=== PATIENT | female | born 1950 | race Caucasian/White ===

== ENCOUNTER 2019-11-30 08:45 | Outpatient (CLI) | payer MEDICARE, OTHER, SELFPAY ==
--- NOTE | ~2019-11-30 | DEXA_ITS ---
Bone Density Report Name: Natalie Mann Age: 69 Sex: Female Ethnicity: White Date of : 1950 Indication: postmenopausal; cancer; Referring Provider: Amanda Montano Study: Bone densitometry was performed. Exam Date: November 30, 2019 Accession number: [id number] Bone Density: Region BMD T-score Z-score Classification AP Spine (L1-L4) 1.501 4.1 6.1 Normal Femoral Neck (Left) 0.941 0.8 2.5 Normal Total Hip (Left) 1.333 3.2 4.6 Normal Total Hip Bilateral Avg 1.376 3.6 5.0 Normal Femoral Neck (Right) 1.162 2.8 4.5 Normal Total Hip (Right) 1.417 3.9 5.3 Normal World Health Organization criteria for BMD impression classify patients as: Normal (T-score at or above -1.0), Osteopenia (T-score between -1.0 and -2.5), or Osteoporosis (T-score at or below -2.5). 10-year Fracture Risk: FRAX not reported because: All T-scores for Spine Total, Hip Total, Femoral Neck at or above -1.0 Clinical Information Provided by Patient: Has the following medical conditions: Cancer Patient maximum height was 11 Menopause Age: 46 No regular weight bearing exercise Onset of menses at age 12 Number of children 3 Impression: The patient has normal bone mass. Discussion: LOW RISK OF FRACTURE; BONE DENSITY IS WELL ABOVE THE MINIMUM DESIRABLE LEVEL AND ABOVE AVERAGE FOR AGE AND SEX AT ALL SKELETAL SITES TESTED. This person's bone density is above expected limits for age and sex. This is rarely clinically significant, but should be pursued if there are significant musculoskeletal complaints. The patient should follow a healthful lifestyle (good nutrition with adequate calcium and vitamin D, and appropriate weight-bearing exercise). Follow-Up: Consider repeating this study in 5 years or sooner if there is some new clinical indication. Reported by: [facility] on 11/30/2019 9:44:00 AM. Reviewed, dictated and finalized at location AChe [place]
--- NOTE | ~2019-11-30 | MM_ITS ---
EXAMINATION: MM screening [place] BI w jose HISTORY: Screening mammogram TECHNIQUE: Craniocaudal and mediolateral oblique 3-D tomosynthesis images were obtained and synthetic 2-D images were generated. CAD analysis was submitted and interpreted. COMPARISON: 11/27/2018 BREAST PARENCHYMAL COMPOSITION: The breasts are almost entirely fatty. FINDINGS: There is no evidence of suspicious mass, calcification, or architectural distortion to sugg est malignancy in either breast. There has been no suspicious interval change. IMPRESSION: 1. No mammographic evidence of malignancy. 2. Recommend routine screening mammography in one year. BI-RADS Category 1: Negative Reviewed, dictated and finalized at location A.
== END 2019-11-30 08:46 | disposition home or self-care (01) ==
PROVIDERS: PCP Internal Medicine; Visit Provider Nurse Practitioner
DX: Z12.31 Encounter for screening mammogram for malignant neoplasm of breast (principal); Z78.0 Asymptomatic menopausal state
CPT/HCPCS: 77063; 77067; 77080

== ENCOUNTER 2020-05-01 08:15 | Outpatient (CLI) | payer MEDICARE, OTHER, SELFPAY ==
--- NOTE | ~2020-05-01 | XR_ITS ---
EXAMINATION: XR UGIAC w barium swallow EXAM DATE: 05/01/2020 08:56 INDICATION: R13.10 - Dysphagia, unspecified . Episodes of food getting stuck. TECHNIQUE: Standard single and double contrast barium upper GI examination was performed. The DAP for this procedure was 5.5 Gycm2. There is no prior study for comparison. FINDINGS: There is no esophageal stricture, diverticulum or mass identified. Small to moderate size sliding gastroesophageal hiatal hernia. The stomach has a normal appearance without evidence of mass lesion, ulceration or filling defect. T here is normal rugal fold pattern. The duodenum and duodenal sweep are normal in appearance. IMPRESSION: Small to moderate sliding gastroesophageal hiatal hernia. Reviewed, dictated and finalized at location A. RAL ADJUSTER
== END 2020-05-01 08:16 | disposition home or self-care (01) ==
PROVIDERS: PCP Internal Medicine; Visit Provider Internal Medicine
DX: R13.10 Dysphagia, unspecified (principal); K44.9 Diaphragmatic hernia without obstruction or gangrene
CPT/HCPCS: 74246

== ENCOUNTER 2020-05-15 10:49 | Outpatient (CLI) | payer MEDICARE, OTHER, SELFPAY ==
--- NOTE | ~2020-05-15 | CT_ITS ---
EXAMINATION: CT lung screening DATE: 05/15/2020 11:15 INDICATION: History of tobacco dependence. TECHNIQUE: Computed tomography (CT) of the chest was performed without intravenous contrast. The dose -length product was 370.85 mGy-cm. Automated exposure control and iterative reconstruction technique were employed. COMPARISON: CT dated 07/10/2018 FINDINGS: Heart size normal. No significant pleural or pericardial effusion. There are calcified gran ulomas of the spleen. No thoracic lymphadenopathy. No significant soft tissue abnormality. There is e mphysema. No endobronchial lesions. There is a 5 mm lingular nodule, image 62. There is a 2 mm left u pper lobe nodule, image 42. There is lingular atelectasis/scarring. There is pleural calcification of the right lower lobe, nonspecific. Mild thoracic spondylosis. IMPRESSION: 1. Lung-RADS category 2: Benign appearance or behavior. Continue annual screening with noncontrast lo w-dose chest CT in 12 months. Reviewed, dictated and finalized at location B. CILMAN IMPRESSION: 1. Lung-RADS category 2: Benign appearance or behavior. Continue annual screeni ng with noncontrast low-dose chest CT in 12 months.
== END 2020-05-15 10:50 | disposition home or self-care (01) ==
PROVIDERS: PCP Internal Medicine; Visit Provider Nurse Practitioner Family
DX: Z12.2 Encounter for screening for malignant neoplasm of respiratory organs (principal); Z87.891 Personal history of nicotine dependence
CPT/HCPCS: G0297

== ENCOUNTER 2021-08-13 11:06 | Outpatient (CLI) | payer MEDICARE, SELFPAY ==
--- NOTE | 2021-08-13 11:29 | ECG_ITS ---
Measurements Intervals [place] Rate: 81 P: 30 CT: 171 QRS: -26 QRSD: 98 T: 16 QT: 362 QTc: 421 Interpretive Statements SINUS RHYTHM DELAYED PRECORDIAL R/S TRANSITION INFERIOR INFARCT, AGE INDETERMINATE BASELINE ARTIFACT- I, II, III ,AVR, AVL, AVF ABNORMAL ECG Electronically Signed On 08-13-2021 12:17:10 [employer] by Aden Cerda D.O.
== END 2021-08-13 11:07 | disposition home or self-care (01) ==
LOC: ANHCARD 11:11
PROVIDERS: PCP Internal Medicine; Visit Provider Nurse Practitioner
DX: Z01.818 Encounter for other preprocedural examination (principal); R94.31 Abnormal electrocardiogram [ECG] [EKG]
CPT/HCPCS: 93005

== ENCOUNTER 2021-09-17 10:32 | Outpatient (CLI) | payer MEDICARE, OTHER, SELFPAY ==
--- NOTE | ~2021-09-17 | CT_ITS ---
EXAMINATION: CT lung screening DATE: 09/17/2021 10:50 INDICATION: Personal history of nicotine dependence. COPD. TECHNIQUE: Computed tomography (CT) of the chest was performed without intravenous contrast. Addition al 3D reconstructions utilizing coronal maximum intensity projection (MIP) were performed. Automated exposure control and iterative reconstruction technique were employed. The dose-length product was 41 3.56 mGy-cm. COMPARISON: 05/15/2020 FINDINGS: Mild emphysema. Unchanged linear band of discoid atelectasis/scarring at the lingula additional mild paramediastinal atelectasis/scarring at the medial right middle lobe.. Interval decrease in size of a now 3 have 4 mm, previously 5 mm nodule at the lingula. Unchanged 4 mm right lower lobe nodule. No p neumonia, pulmonary edema, pleural effusion or pneumothorax. Calcified nodule at the right posterior sulcus along side a small fat-containing Bochdalek hernia which along with calcified right hilar lymp h nodes and multiple splenic calcifications are all consistent with old granulomatous disease. Heart size is normal. There is lipomatous hypertrophy of the atrial septum. Atherosclerotic coronary artery calcific location. Mild diffuse hepatic steatosis. Small calcified nodules at the left thyroid lobe. Subtle 2.5 cm hypodense nodule at the right thyroid lobe previously described on thyroid ultrasound dated 03/24/2017. No pathologically enlarged thoracic lymphadenopathy. Moderate thoracic spondylosis. IMPRESSION: 1. Lung-RADS category 2: Benign appearance or behavior. Continue annual screening with noncontrast lo w-dose chest CT in 12 months. Reviewed, dictated and finalized at location B. IMPRESSION: 1. Lung-RADS category 2: Benign appearance or behavior. Continue annual screeni ng with noncontrast low-dose chest CT in 12 months.
== END 2021-09-17 10:33 | disposition home or self-care (01) ==
PROVIDERS: PCP Internal Medicine; Visit Provider Nurse Practitioner Family
DX: Z87.891 Personal history of nicotine dependence (principal)
CPT/HCPCS: 71271

== ENCOUNTER 2021-09-17 15:07 | Outpatient (CLI) | payer MEDICARE, OTHER, SELFPAY ==
--- NOTE | ~2021-09-17 | MM_ITS ---
EXAMINATION: MM screening [place] BI w jose HISTORY: Screening TECHNIQUE: Craniocaudal and mediolateral oblique 3-D tomosynthesis images were obtained and synthetic 2-D images were generated. CAD analysis was submitted and interpreted. COMPARISON: Comparison to multiple prior studies sequentially, with oldest reviewed study dated 11/27. BREAST PARENCHYMAL COMPOSITION: The breasts are almost entirely fatty. FINDINGS: There is no evidence of suspicious mass, calcification, or architectural distortion to sugg est malignancy in either breast. There has been no suspicious interval change. IMPRESSION: 1. No mammographic evidence of malignancy. 2. Recommend routine screening mammography in one year. BI-RADS Category 1: Negative Reviewed, dictated and finalized at location A.
== END 2021-09-17 15:08 | disposition home or self-care (01) ==
LOC: ANHIMG 15:10
PROVIDERS: PCP Internal Medicine; Visit Provider Nurse Practitioner
DX: Z12.31 Encounter for screening mammogram for malignant neoplasm of breast (principal)
CPT/HCPCS: 77063; 77067

== ENCOUNTER 2022-02-19 14:12 | Outpatient (CLI) | payer MEDICARE, OTHER, SELFPAY ==
--- NOTE | ~2022-02-19 | XR_ITS ---
EXAM: XR knee RT 3V, XR knee LT 3V DATE: 02/19/2022 14:41 HISTORY: W19.XXXA - Unspecified fall, initial encounter . COMPARISON: None available. FINDINGS: Decreased mineralization. No fracture or dislocation. No lytic or blastic lesion. Severe b ilateral medial joint space narrowing. Moderate tricompartmental osteophytosis. No erosion or periost eal change. Vascular calcifications. Small bilateral knee joint effusions. IMPRESSION: No acute osseous finding in the left or right knees. Tricompartmental osteoarthritis, sev ere in the medial compartments bilaterally. Reviewed, dictated and finalized at location K. IMPRESSION: No acute osseous finding in the left or right knees. Tricompartment al osteoarthritis, severe in the medial compartments bilaterally.
== END 2022-02-19 14:13 | disposition home or self-care (01) ==
PROVIDERS: PCP Internal Medicine; Visit Provider Internal Medicine
DX: M17.0 Bilateral primary osteoarthritis of knee (principal)
CPT/HCPCS: 73562

== ENCOUNTER 2022-06-27 10:58 | Emergency (ER) | payer MEDICARE, OTHER, SELFPAY ==
[2022-06-27 11:04] VITALS: BP 153/94; PULSE 91; RESP 16; TEMP 36.4; O2SAT 97
--- NOTE | 2022-06-27 11:13 | ED.BACK ---
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 There is no saddle paresthesias no fever chills and back tenderness left lower back area. MD elicited complaint: back pain Onset (ago): day(s) Timing: constant Severity: moderate Pain scale (0-10): 7 Quality: sharp and spasming Location: lumbar spine and left lower back Radiation: left upper leg Relieving factors: immobilization Related Data Home Medications Medication Instructions Recorded Confirmed pantoprazole 20 mg tablet,delayed 20 mg PO QAM 09/21/21 04/05/22 release Allergies Allergy/AdvReac Type Severity Reaction Status Date / Time No Known Allergies Allergy Verified 04/05/22 13:21 Review of Systems Review of Systems: All systems reviewed & are unremarkable except as noted in HPI and below PMFSH Past Medical History Medical History COVID-19 Screening for breast cancer Screening for colon cancer Screening for osteoporosis Urinary incontinence Surgical History Surgical History H/O section (~196) H/O eye surgery H/O sinus surgery (~2013) H/O: hysterectomy (~1996) History of uterine suspension procedure (~1979) Hx of tonsillectomy (~1966) Family History Family History Sibling Family history of Alzheimer's disease Patient's sister is in good health Patient's brother is Mother Patient's mother is Father Patient's father is Sister Familial Alzheimer's disease of late onset Other Family history of dementia Family history of tuberculosis Hypertension Social History Social History Smoking packs per day: 3 Smoking cigarettes per day: 60.0 Years smoked: 47 Smoking pack-years: 141.00 Smoking status: Former smoker Tobacco type: cigarettes Second hand tobacco smoke exposure: Yes Smoking end date: 06/16/13 Alcohol intake: never Substance use: never Substance use type: does not use Exam Const: General: healthy appearing Nutritional Appearance: well nourished Limitations: no limitations HENMT: Face/Nose/Sinus: Normal external nose present Mouth: Yes Normal oral and palatal mucosa present Teeth and gingiva: dentition normal Eyes: Conjunctivae: conjunctivae normal Pupils: Equal, round and reactive pupils present EOM: EOMs intact bilaterally Direct Ophthalmoscopy: no photophobia Neck: Neck: normal visual inspection Chest: Chest palpation & inspection: normal inspection of the chest Resp: Effort & Inspection: normal respiratory effort Auscultation: clear to auscultation bilaterally Cardio: Rate: regular rate Rhythm: regular rhythm GI: Auscultation: normal bowel sounds : General: Yes bladder normal to palpation Skin: General skin exam: normal color Wounds: no wounds Neuro: General: patient oriented x3 Cranial nerves: Yes Nystagmus not present Extrem: General: normal to inspection Psych: Mental Status: mental status grossly normal Affect: normal affect Course Course Emergency Course: pt recieved toradol IM 30 mg for pain Critical Care Time Critical Care Time Critical Care Time: No Discharge Plan Discharge Clinical Impression: Sciatica Patient Dispo
[2022-06-27] MEDS: KETOROLAC 30 MG/ML VIAL (*BKC) IM (11:39)
[2022-06-27 12:43] VITALS: BP 175/110; PULSE 86; RESP 16; TEMP 36.8; O2SAT 100
== END 2022-06-27 12:20 | disposition home or self-care (01) ==
LOC: CHSED 11:31
PROVIDERS: Emergency Provider Emergency Medicine; PCP Internal Medicine
DX: M54.30 Sciatica, unspecified side (principal); Z87.891 Personal history of nicotine dependence
CPT/HCPCS: 96372; 99283; J1885

== ENCOUNTER 2022-07-09 10:25 | Outpatient (CLI) | payer MEDICARE, OTHER, SELFPAY ==
--- NOTE | ~2022-07-09 | XR_ITS ---
Lumbosacral Spine: AP and lateral views Clinical History: Pain Findings: The normal lordotic curve is maintained. No fracture or subluxation seen. Intervertebral di sc spaces are preserved. There are extensive facet joint degenerative changes throughout the lumbar s pine. The sacroiliac joints are normally outlined. Impression: Extensive facet joint degenerative changes throughout the lumbar spine. Reviewed, dictated and finalized at location . OL CUSTODIAN Impression: Extensive facet joint degenerative changes throughout the lumbar spine.
== END 2022-07-09 10:26 | disposition home or self-care (01) ==
PROVIDERS: PCP Internal Medicine; Visit Provider Nurse Practitioner Family
DX: M47.816 Spondylosis without myelopathy or radiculopathy, lumbar region (principal); M54.40 Lumbago with sciatica, unspecified side
CPT/HCPCS: 72100

== ENCOUNTER 2022-07-26 15:02 | Outpatient (RCR) | payer MEDICARE, OTHER, SELFPAY ==
--- NOTE | 2022-07-26 16:37 | PTOPEVAL1 ---
Assessment and note entered by Ellen Dennison DPT Evaluation Information Assessment Status Evaluation Diagnosis lower back and L hip pain Onset 07/09/22 Subjective Information Patient is a 71 year old female. She reports in June she had some back pain and went to the chiropractor who adjusted her and since then she has had increase in L hip and LE pain. She reports pain down the L LE is variable is how far down it travels. on 07/09/22 she got an injection and that did not give her any relief. Patient has difficulty with feeding her horses, house hold chores and getting up out of the chair. she also cares for her at home. Reported Pain Level Pain Score 4: Self Report Plan of Care Interventions Electrical Stimulation,Gait Training,Hot Pack/Cold Pack,Manual Therapy,Mechanical Traction,Neuro Re- education,Patient/Caregiver Educati,Therapeutic Activities,Therapeutic Exercise,Self-Care/Home Management PT Services Indicated Yes Treatment Frequency and 2x weekly for 10 visits Duration These treatments will address the objective and functional deficits as defined above. The patient will be advanced safely and appropriately in order for the patient to progress towards his/her prior level of function. Additional exercises will be introduced and as well as a comprehensive home exercise program upon discharge, if needed, ?to ensure carryover of functional gains achieved in the clinic. This treatment plan has been reviewed and agreement upon by the patient.
--- NOTE | 2022-08-29 15:42 | PTOPEVAL1 ---
Assessment and note entered by Ellen Dennison DPT Evaluation Information Assessment Status Re-evaluation Diagnosis lower back and L hip pain Onset 07/09/22 Subjective Information Patient reports that overall she feels better but still has a spot in her L upper glute that causes pain. She reports that walking, getting up out of a chair and doing house hold chores have gotten easier. She reports continued difficulty with feeding the horses. Reported Pain Level Pain Score 1: Self Report Assessment PT Clinical Summary Patient has been seen for 10 visits from 07/26/22-. Patient has demonstrated an increase in LE strength and decreased pain with lumbar ROM. She has improved ability to rise from chair and perform house hold tasks. She continues to demonstarte pain with L lumbar side bend and tightness of the L piriformis. Updated HEP this date. Patient would benefit from continued skilled PT to address impairments and return to PLOF. Plan of Care Interventions Electrical Stimulation,Gait Training,Hot Pack/Cold Pack,Manual Therapy,Mechanical Traction,Neuro Re- education,Patient/Caregiver Educati,Therapeutic Activities,Therapeutic Exercise,Self-Care/Home Management PT Services Indicated Yes Treatment Frequency and continue 2x weekly for 6 visits Duration These treatments will address the objective and functional deficits as defined above. The patient will be advanced safely and appropriately in order for the patient to progress towards his/her prior level of function. Additional exercises will be introduced and as well as a comprehensive home exercise program upon discharge, if needed, ?to ensure carryover of functional gains achieved in the clinic. This treatment plan has been reviewed and agreement upon by the patient.
--- NOTE | 2022-11-01 13:49 | PCPTNOTE ---
Patient did not return for remaining visits
== END 2022-09-16 23:59 | disposition home or self-care (01) ==
LOC: CHSPT 15:02
PROVIDERS: Visit Provider Nurse Practitioner Family
DX: M54.40 Lumbago with sciatica, unspecified side (principal)
CPT/HCPCS: 97014; 97110; 97112; 97140; 97161; 97530; G0283

== ENCOUNTER 2022-09-16 09:24 | Outpatient (CLI) | payer MEDICARE, OTHER, SELFPAY ==
--- NOTE | ~2022-09-16 | CT_ITS ---
EXAMINATION:CT lung screening DATE: 09/16/2022 09:41 INDICATION: Personal history of tobacco dependence. Smoker quit 9 years ago with 141 pack year histor y. TECHNIQUE: Computed tomography (CT) of the chest was performed without intravenous contrast. Automate d exposure control and iterative reconstruction technique were employed. The dose-length product (DLP ) was 304.56 mGy-cm. COMPARISON: Chest CT 09/17/2021 FINDINGS: There is mild emphysema. Calcified right lung nodules and calcified right hilar lymph nodes are consistent with old granulomatous disease. Again seen is a 4 mm nodule in lingula. Again seen is a 4 mm nodule in right lower lobe. There is mild atelectasis in lingula. No pleural effusion. The he art size is normal. There are coronary artery calcifications. There is lipomatous hypertrophy of the interatrial septum. No pericardial effusion. Calcifications in the spleen are consistent with old gra nulomatous disease. There is mild thoracic spondylosis. IMPRESSION: 1. Lung-RADS category 2: Benign appearance or behavior. Continue annual screening with noncontrast lo w-dose chest CT in 12 months. Reviewed, dictated and finalized at location D. IMPRESSION: 1. Lung-RADS category 2: Benign appearance or behavior. Continue annual screeni ng with noncontrast low-dose chest CT in 12 months.
== END 2022-09-16 09:25 | disposition home or self-care (01) ==
PROVIDERS: PCP Internal Medicine; Visit Provider Nurse Practitioner Family
DX: Z12.2 Encounter for screening for malignant neoplasm of respiratory organs (principal); Z87.891 Personal history of nicotine dependence
CPT/HCPCS: 71271

== ENCOUNTER 2023-04-28 10:56 | Outpatient (CLI) | payer MEDICARE, OTHER, SELFPAY ==
--- NOTE | 2023-04-29 17:22 | WPDPFTINT ---
PFT Interpretation DOS: 03/28/2023 REQUESTING: Francois Trammell APRN REASON FOR TESTING: shortness of breath PULMONARY FUNCTION TESTS Results are reliable and reproducible. Spirometry: FEV1 is 2.38 L, 99% predicted, normal. FVC is 3.10 L, 101% predicted, normal. the FEV1/FVC ratio is 77%, normal. After bronchodilator, there is a 3% drop in the FEV1 and a 5% drop in the FVC. These are non statistically significant changes. Lung volumes: Total lung capacity is 4.84 L, 86% predicted, normal. Residual volume is 1.75 L, 77%, normal. RV /TLC is 36%, normal. Airway resistance 289%. Diffusion: DLCO is 15.7, 62%, mildly decreased. DLCO/VA is 95%, normal. Flow volume loop: Unremarkable IMPRESSION: This study shows a normal spirometry, normal lung volumes and mildly decreased DLCO which corrects for alveolar volume. There is no response to bronchodilator. Lack response to bronchodilator should not preclude use of clinically indicated. Compared to a prior study 09/07/2015, values are similar. FEV1 was 2.29 L, 87%, normal. FVC was 2.99 L, 91%, normal. The FEV1/FVC ratio was 95%, normal. There was no significant change after bronchodilator. The total lung capacity was 5.24 L, 89% predicted. Residual volume was 2.25 L, 96%. Airway resistance was normal. DLCO was 17.5, 57%, moderately decreased. DLCO/ VA 3.62, 106% normal. On the prior study the FEF 25-75 was 62% predicted and increased by 24%. This was interpreted as a small airways pattern with response to bronchodilator. There was no improvement in the small airways flows with bronchodilator on the current study. Macy Maya MD
--- NOTE | 2023-04-29 17:45 | WPDSIXMINUTE ---
Six Minute Walk Procedure Procedure Performed Pulmonary Stress Test (6 min walk) Six Minute Walk Six Minute Walk: DATE OF SERVICE: 04/28/2023 REQUESTING: Francois Trammell APRN REASON FOR TESTING: shortness of breath SIX MINUTE WALK This test was conducted per ATS guidelines. The initial saturation was 95%, and initial heart rate was 93 beats per minute. The patient walked without stopping, completing 900 ft/ 274 m. The saturation at the end of testing was 96%, and the heart rate was 118 beats per minute. The patient had a Mary Scale of 5 for dyspnea at the end of the test. There was no dyspnea at the start of the test. IMPRESSION: This is a normal study. The patient did not require supplemental oxygen with exertion. Macy Maya MD
== END 2023-04-28 10:57 | disposition home or self-care (01) ==
LOC: CHSCARD 11:03
PROVIDERS: PCP Family Medicine; Visit Provider Nurse Practitioner Family
DX: R06.09 Other forms of dyspnea (principal); J44.9 Chronic obstructive pulmonary disease, unspecified
CPT/HCPCS: 94060; 94618; 94726; 94729

== ENCOUNTER 2023-06-05 10:47 | Outpatient (CLI) | payer MEDICARE, OTHER, SELFPAY ==
[2023-06-05 11:10] LABS: Appearance Urine Slightly Cloudy (Clear); Bilirubin Urine Negative (Negative); Blood Urine Negative (Negative); Color Urine Yellow (Yellow); Glucose Urine UA Negative (Negative); Ketones Urine Trace (Negative); Leukocyte Esterase Ur 1+ (Negative); Nitrate Urine Positive (Negative); Protein Urine Trace (Negative); Specific Grav Ur >= 1.030 (1.010-1.020); pH Urine 5.5 (5.0-8.0)
[2023-06-05 11:14] LABS: Add Urine Microscopic? YES; RBC Urine None seen /hpf (0-2); Squamous Epithelial Cell Urine Few /hpf (Few)
[2023-06-05 11:15] LABS: Bacteria Urine 2+ /hpf
== END 2023-06-05 10:48 | disposition home or self-care (01) ==
PROVIDERS: PCP Family Medicine; Visit Provider Nurse Practitioner Family
DX: R39.9 Unspecified symptoms and signs involving the genitourinary system (principal)
CPT/HCPCS: 81001; 87077; 87086; 87088; 87186

== ENCOUNTER 2023-06-25 19:34 | Outpatient (CLI) | payer MEDICARE, OTHER, SELFPAY ==
--- NOTE | 2023-07-16 12:34 | WPDSLEEPSTUD ---
Sleep Study Date of Study: 06/25/23 Ordering Provider: Francois Trammell APRN Interpreting Physician: Macy Maya MD Sleep Study Type: Polysomnogram Height: 1.75 m Weight: 101.151 kg Body Mass Index: 32.9 Neck Circumference (inches): 14 [place]: 4 Reason for Sleep Study History of JUAN PABLO BiPAP, has not used for several years as the noise woke her up. He in January, she want to be tested again. Her sleep is worse after the of her . Moderate JUAN PABLO from a 2016 outside [facility]. Had BiPAP Titration 2018 at [place] - titration to . on BiPAP. 247lbs * Sleep History Natalie Mann is 72-year-old woman with a history of sleep apnea, was on BiPAP but stopped using it because her did not like the noise. He in January of 2023. Osbaldo has had more difficulty sleeping since then. It takes her a while to fall asleep and to stay asleep. She has tried qkni-mpx-jnemptl medications that made her sleep excessively, up to 13 hours at night. She has lost significant weight since her prior visit, takes Ozempic. She also has COPD. She never awakens from sleep short of breath. She never wakes at night with heartburn, belching or coughing.??She frequently snores, frequently snores loudly enough that others complain. She occasionally has trouble sleeping when she has a cold. She never wakes up gasping for breath during the night. She never has breathing problems at night. She never sweats excessively at night. She never notices her heart pounding or beating irregularly during the night. She never falls asleep during the day. She never falls asleep involuntarily, never falls asleep while driving. She never experiences loss of muscle tone with strong emotion. She never feels paralyzed on waking or falling asleep. She never experiences vivid dreams upon waking or falling asleep. She never feels afraid of going to sleep. She never has nightmares. She never recalls her dreams. She never has thoughts racing through her mind. She frequently feels sad or depressed. She frequently feels anxiety. She never notices parts of her body jerk. She never kicks during the night. She never feels crawling or aching feelings in her legs. She never feels leg pain at night. She never has morning jaw pain, and never grinds her teeth at night. She occasionally feels bothered by pain during the day, is never awakened by pain during the night. She occasionally wakes up feeling stiff in the morning, never wakes feeling sore or achy in the morning. She occasionally awakens with pain in her neck, spine, or joints. Normal bedtime is between 8:00 p.m. and 10:00 p.m.,typically using a sleeping pill, sometimes taking a very long time to fall asleep. Using a sleeping pill, she may get 12 hours of interrupted sleep. She typically wakes up 5 times during the night, may go to the bathroom, get a drink, reposition and try to return to sleep. Sometimes she is able to return to sleep in 15 minutes but it may take up to 2 hours., She Does not have a fixed wake time. She keeps a similar schedule on weekends. Her sleep may also be disturbed by her 3 dogs moving around on the bed. She does not generally take naps in the afternoon or evening. On occasion she awakens feeling refreshed. On occasion, she has memory and concentration problems and excessive daytime sleepiness. She has not had any change in her weight in the last 12 months. Habits:??Tobacco: Quit tobacco 2013 Caffeine: none. Alcohol: none Recreational substances: none PMFSH Past Medical History Medical History Chronic obstructive pulmonary disease COVID-19 Depression with anxiety Hemangiopericytoma Hyperlipidemia Hypertension (12/02/17) Hypothyroidism (acquired) (12/02/17) Lung nodule Morbid obesity JUAN PABLO (obstructive sleep apnea) Screening for breast cancer Screening for colon cancer Screening for osteoporosis Urinary incontinence S
[2023-07-17 14:27] VITALS: BMI 32.9
== END 2023-06-26 06:15 | disposition home or self-care (01) ==
PROVIDERS: PCP Family Medicine; Visit Provider Nurse Practitioner Family
DX: G47.61 Periodic limb movement disorder (principal); G47.33 Obstructive sleep apnea (adult) (pediatric)
CPT/HCPCS: 95810

== ENCOUNTER 2023-07-28 13:03 | Outpatient (CLI) | payer MEDICARE, OTHER, SELFPAY | END 2023-07-28 13:04 | disposition home or self-care (01) | LOC: ANHLAB 13:06 | PROVIDERS: PCP Nurse Practitioner Family; Visit Provider Nurse Practitioner Family | DX: M25.50 Pain in unspecified joint (principal); G47.61 Periodic limb movement disorder | CPT/HCPCS: 36415; 82728 ==

== ENCOUNTER 2023-09-22 13:47 | Outpatient (CLI) | payer MEDICARE, OTHER, SELFPAY ==
--- NOTE | ~2023-09-22 | CT_ITS ---
CT Scan of the Chest without Contrast: Clinical Indication: Lung cancer screening, nicotine dependence Technique: Contiguous sections were acquired throughout the chest without intravenous contrast. Dose reduction technique was used on this scan by utilizing automated exposure control and iterative recon struction technique. The dose-length product (DLP) was 221.43 mGy-cm. Findings: There is no evidence of any significant mediastinal, hilar or axillary lymphadenopathy. The mediastin al soft tissues appear normal. There is no evidence of pleural or pericardial effusion. There is mild emphysema. There is a 4 mm lingular nodule. 4 mm right lower lobe pulmonary nodule pres ent. Images through the upper abdomen reveal calcified splenic granulomas. Impression: Lung RADS 2: Benign appearance. 12 month follow-up screening CT advised. Reviewed, dictated and finalized at [facility]. Impression: Lung RADS 2: Benign appearance. 12 month follow-up screening CT advised.
== END 2023-09-22 13:48 | disposition home or self-care (01) ==
LOC: CHSIMG 13:50
PROVIDERS: Visit Provider Nurse Practitioner Family
DX: Z12.2 Encounter for screening for malignant neoplasm of respiratory organs (principal); Z87.891 Personal history of nicotine dependence
CPT/HCPCS: 71271

== ENCOUNTER 2023-09-24 14:22 | Outpatient (CLI) | payer MEDICARE, SELFPAY ==
[2023-09-24 16:29] LABS: Ferritin 93 ng/mL (8-252)
== END 2023-09-24 14:23 | disposition home or self-care (01) ==
LOC: CHSLAB 14:24
PROVIDERS: PCP Family Medicine; Visit Provider Nurse Practitioner Family
DX: G47.61 Periodic limb movement disorder (principal); M25.50 Pain in unspecified joint
CPT/HCPCS: 36415; 82728

== ENCOUNTER 2023-10-28 18:31 | Emergency (ER) | payer MEDICARE, OTHER, SELFPAY ==
--- NOTE | ~2023-10-28 | XR_ITS ---
EXAM: XR hand LT min 3V DATE: 10/28/2023 18:53 HISTORY: leading a donkey rope got tangled injured hand. . COMPARISON: None available. FINDINGS: Limited lateral view of the fifth and proximal fourth digits due to overlapping anatomy. N ormal mineralization. No fracture or dislocation. No lytic or blastic lesion. 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 No erosion or periosteal change. Soft tissues within normal ansari its. IMPRESSION: No acute osseous finding in the left hand. Reviewed, dictated and finalized at location K.
--- NOTE | 2023-10-28 18:43 | ED.URI ---
HPI - URI/Sore Throat General Chief Complaint: Extremity Injury, Upper Stated Complaint: INJURED FINGER Time Seen by Provider: 10/28/23 18:43 Source: patient, family, RN notes reviewed and old records reviewed Mode of arrival: ambulatory Limitations: no limitations History of Present Illness HPI Narrative: 73 year old female accompanied by family member presents to express care with complaints of injury to her left hand and middle finger which occurred about 1.5 hours ago when she was leading a donkey and rope got caught around her hand and then donkey pulled on it causing injury. Patient appears to have rope burn on her dorsal hand near 5th metacarpal, small flap laceration to dorsal hand at 4th metacarpal and small laceration to distal 3rd finger on side of nail with no active bleeding. Patient reports discomfort to the distal middle left finger. Tetanus is not up to date. MD elicited complaint: other (injury to left hand and middle finger) Onset (ago): hour(s) (1.5 hours ago) Pain scale (0-10): 4 Able to tolerate fluids by mouth: Yes Treatments prior to arrival: other (wrapped hand with towel) Related Data Home Medications Medication Instructions Recorded Confirmed [id number] 5 mg-zeaxanth 2 cap PO BID 12/24/22 10/20/23 1 mg-bilberry 7.5 mg-herbal capsule ([employer] Formula) Allergies Allergy/AdvReac Type Severity Reaction Status Date / Time No Known Allergies Allergy Verified 10/20/23 11:01 Review of Systems Review of Systems: CONSTITUTIONAL: Denies fever, chills, or sweats. EYES: Denies visual changes, redness, or discharge. ENT: Denies rhinorrhea, congestion, sore throat, or otalgia. CARDIOVASCULAR: Denies chest pain, palpitations, or edema. RESPIRATORY: Denies cough or dyspnea. GASTROINTESTINAL: Denies abdominal pain, nausea, vomiting, or diarrhea. GENITOURINARY: Denies dysuria or hematuria. SKIN: Denies rash or itching. abrasion to left dorsal hand by 5th metacarpal, skin tear to dorsal hand near 4th metacarpal and laceration to outer aspect of distal middle finger MUSCULOSKELETAL: Denies back pain, joint pain, or myalgia positive for injury to her left hand and to left middle finger NEUROLOGIC: Denies headache, numbness, or weakness. PSYCHIATRIC: Denies anxiety or depression. All systems reviewed & are unremarkable except as noted in HPI and below PMFSH Past Medical History Medical History Chronic obstructive pulmonary disease COVID-19 Depression with anxiety Hemangiopericytoma Hyperlipidemia Hypertension (12/02/17) Hypothyroidism (acquired) (12/02/17) Lung nodule Morbid obesity JUAN PABLO (obstructive sleep apnea) Screening for breast cancer Screening for colon cancer Screening for osteoporosis Urinary incontinence Surgical History Surgical History H/O section (~1960) H/O eye surgery H/O sinus surgery (~2013) H/O: hysterectomy (~1996) History of uterine suspension procedure (~1979) Hx of tonsillectomy (~1966) Family History Family History Sibling Family history of Alzheimer's disease Patient's sister is in good health Patient's brother is Mother Patient's mother is Father Patient's father is Sister Familial Alzheimer's disease of late onset Other Family history of dementia Family history of tuberculosis Hypertension Social History Social History Smoking packs per day: 3 Smoking cigarettes per day: 60.0 Years smoked: 47 Smoking pack-years: 141.00 Smoking status: Former smoker Tobacco type: cigarettes Second hand tobacco smoke exposure: Yes Smoking end date: 06/16/13 Alcohol intake: never Substance use: never Substance use type: does not use Lack of Transp
[2023-10-28 18:44] VITALS: BP 140/79; PULSE 76; RESP 16; TEMP 36.4; O2SAT 96
[2023-10-28] MEDS: TETANUS,DIPHTHERIA,AC PERTUSSIS ADULT (0.5 ML) BOOSTRIX IM (19:35)
== END 2023-10-28 20:09 | disposition home or self-care (01) ==
PROVIDERS: Emergency Provider Registered Nurse; PCP Nurse Practitioner Family
DX: S61.213A Laceration without foreign body of left middle finger without damage to nail, initial encounter (principal); S61.412A Laceration without foreign body of left hand, initial encounter; X58.XXXA Exposure to other specified factors, initial encounter; S60.032A Contusion of left middle finger without damage to nail, initial encounter; Z23 Encounter for immunization; Z87.891 Personal history of nicotine dependence; J44.9 Chronic obstructive pulmonary disease, unspecified; E78.5 Hyperlipidemia, unspecified; I10 Essential (primary) hypertension; E03.9 Hypothyroidism, unspecified; E66.01 Morbid (severe) obesity due to excess calories; Z68.34 Body mass index [BMI] 34.0-34.9, adult; Z86.16 Personal history of COVID-19
CPT/HCPCS: 12001; 73130; 90471; 90715; 99213; G0463

== ENCOUNTER 2023-11-21 12:17 | Outpatient (RCR) | payer MEDICARE, OTHER, SELFPAY ==
--- NOTE | 2023-11-21 13:34 | OTOPEVAL1 ---
Assessment and note entered by Ajay Raines, LIZ/Nasrin, CHT Evaluation Information Diagnosis Mallet finger Subjective Information Patient's left middle finger was caught in a rope. She presents today in a Stax splint that was applied in the MD office 11/12/23. She is referred to OT for fabrication of a custom splint. Assessment OT Clinical Summary Patient referred to OT with dx of mallet finger for fabrication of a DIP extension splint for her left middle finger. A custom DIP extension splint was fabricated and applied. She was educated on MPC and PIP ROM. She was educated on skin care to prevent further maceration of the skin. No follow up visits were scheduled at this time. Plan to leave her chart open to allow her to return for any splinting needs/adjustments on a PRN basis for the next 5 weeks. Thank you for this referral. Plan of Care Interventions Therapeutic Exercise,Check Out for Orthotic/Pr OT Services Indicated Yes Treatment Frequency and No follow up visits were scheduled at this time. Duration Plan to leave her chart open to allow her to return for any splinting needs/adjustments on a PRN basis for the next 5 weeks. These treatments will address the objective and functional deficits as defined above. The patient will be advanced safely and appropriately in order for the patient to progress towards his/her prior level of function. Additional exercises will be introduced and as well as a comprehensive home exercise program upon discharge, if needed, ?to ensure carryover of functional gains achieved in the clinic. This treatment plan has been reviewed and agreement upon by the patient.
--- NOTE | 2024-01-29 08:26 | OTOPDC ---
Assessment and note entered by Ajay Raines, LIZ/Nasrin, CHT OT Discharge Notification 01/29/24 OT Clinical Summary Patient referred to OT with dx of mallet finger. A custom splint was fabricated on 11/21/23. She never returned for any splinting needs/modifications. Discharging OT at this time. Thank you for this referral.
== END 2024-01-30 08:46 | disposition home or self-care (01) ==
LOC: ANHOT 12:17
PROVIDERS: PCP Family Medicine; Visit Provider Plastic Surgery
DX: M20.019 Mallet finger of unspecified finger(s) (principal)
CPT/HCPCS: 97165; L3933

== ENCOUNTER 2024-03-15 11:35 | Outpatient (CLI) | payer MEDICARE, SELFPAY ==
[2024-03-15 14:23] LABS: Alanine Aminotransferase 26 U/L (14-59); Albumin Level 3.7 g/dL (3.4-5.0); Alkaline Phosphatase 84 U/L (46-116); Anion Gap 8 mmol/L (4-12); Aspartate Amino Transferase 17 U/L (15-37); Bilirubin,Total 0.8 mg/dL (0.00-1.00); Blood Urea Nitrogen 17 mg/dL (7-18); Calcium 9.9 mg/dL (8.5-10.1); Carbon Dioxide 26 mmol/L (21-32); Chloride 106 mmol/L (98-108); Cholesterol 170 mg/dL (0-200); Estimated Glomerular Filt Rate > 60; Glucose 102 mg/dL (70-99); HDL Direct 51 mg/dL (40-60); LDL Cholesterol Calculated 95 mg/dL (<130); Osmolality Calculated 291 mOsm/kg (285-295); Potassium 4.6 mmol/L (3.5-5.1); Sodium 140 mmol/L (136-145); Total Protein 7.3 g/dL (6.4-8.2); Triglycerides 121 mg/dL (0-150)
[2024-03-15 14:59] LABS: Ferritin 108 ng/mL (8-252)
[2024-03-15 15:08] LABS: Hemoglobin A1C 5.6 % (<5.7)
== END 2024-03-15 11:36 | disposition home or self-care (01) ==
PROVIDERS: Nurse Practitioner Family; PCP Family Medicine; Visit Provider Nurse Practitioner Family
DX: G47.61 Periodic limb movement disorder (principal); M25.50 Pain in unspecified joint; Z79.899 Other long term (current) drug therapy; I10 Essential (primary) hypertension; E78.5 Hyperlipidemia, unspecified; R73.03 Prediabetes
CPT/HCPCS: 36415; 80053; 80061; 82728; 83036

== ENCOUNTER 2024-06-07 16:39 | Outpatient (CLI) | payer MEDICARE, SELFPAY ==
[2024-06-07 17:41] LABS: Toxigenic C. Diff NEGATIVE (NEGATIVE)
== END 2024-06-07 16:40 | disposition home or self-care (01) ==
PROVIDERS: PCP Nurse Practitioner Family; Visit Provider Nurse Practitioner Family
DX: R19.7 Diarrhea, unspecified (principal)
CPT/HCPCS: 87493

== ENCOUNTER 2024-09-14 14:27 | Outpatient (RCR) | payer MEDICARE, OTHER, SELFPAY ==
--- NOTE | 2024-09-14 17:14 | PTOPEVAL1 ---
Assessment and note entered by Ellen Zhang DPT Evaluation Information Assessment Status Evaluation Diagnosis B knee pain ICD-10 Condition Codes (PT) Pain in right knee M25.561,Pain in left knee M25. 562 Other ICD-10 Condition Codes ( M17.0 PT) Onset 09/08/24 Subjective Information Patient reports she has had knee pain for over 10 years. She reports lately knee pain has increased. She reports difficulty with navigating steps into her home, getting into and out of the car, walking and getting out of a chair. She reports recently her kids have installed a hand rail on the steps and that help. She reports L knee pain is worse than R. She reports she returns to MD tomorrow to get an injection in the L knee. Reported Pain Level Pain Score 2,7: Self Report Assessment PT Clinical Summary Ms. Mann is a 74 year old female who presents to PT with B knee pain L>R. She demonstrates decreased B knee active ROM, decreased B LE strength and impaired gait mechanics impairing her ability to navigate stairs, get up out of a chair and get into and out of the car. She would benefit from skilled PT to address impairments and return to PLOF. Plan of Care Interventions Electrical Stimulation,Gait Training,Hot Pack/Cold Pack,Manual Therapy,Neuro Re-education,Patient/ Caregiver Education,Therapeutic Activities, Therapeutic Exercise PT Services Indicated Yes Treatment Frequency and 2x weekly for 10 visits Duration These treatments will address the objective and functional deficits as defined above. The patient will be advanced safely and appropriately in order for the patient to progress towards his/her prior level of function. Additional exercises will be introduced and as well as a comprehensive home exercise program upon discharge, if needed, ?to ensure carryover of functional gains achieved in the clinic. This treatment plan has been reviewed and agreement upon by the patient.
--- NOTE | 2024-09-23 13:12 | PCPTNOTE ---
Cancelled session. Reports she is not feeling well and will call back later to reschedule.
--- NOTE | 2024-10-26 14:40 | PTOPREEVAL ---
Assessment and note entered by Ellen Zhang DPT Evaluation Information Assessment Status Re-evaluation Diagnosis B knee pain ICD-10 Condition Codes (PT) Pain in right knee M25.561,Pain in left knee M25. 562 Other ICD-10 Condition Codes ( M17.0 PT) Onset 09/08/24 Subjective Information Patient reports B knees have improved. She denies fall since start of care. She reports when she leaves the house she is using a SBQC. She reports she continues to have difficulty with walking on uneven surfaces and completing chores outside around the home. She would like to continue with PT and has been compliant with HEP Reported Pain Level Pain Score 4,1: Self Report Assessment PT Clinical Summary Ms. Mann has been seen for 12 visits of skilled PT at this time and is making good progress towards goals. She demonstrates improve LE strength and ROM but continues to be limited in ability to ambulate prolonged distances. Goals added this date to address patient balance to decrease fall risk. She would benefit from continued skilled PT to address remaining impairments and return to PLOF. Plan of Care Interventions Electrical Stimulation,Gait Training,Hot Pack/Cold Pack,Manual Therapy,Neuro Re-education,Patient/ Caregiver Education,Therapeutic Activities, Therapeutic Exercise PT Services Indicated Yes Treatment Frequency and continue 2x weekly for 10 additional visits Duration These treatments will address the objective and functional deficits as defined above. The patient will be advanced safely and appropriately in order for the patient to progress towards his/her prior level of function. Additional exercises will be introduced and as well as a comprehensive home exercise program upon discharge, if needed, ?to ensure carryover of functional gains achieved in the clinic. This treatment plan has been reviewed and agreement upon by the patient.
--- NOTE | 2024-12-02 15:37 | OPREHPOC ---
Outpatient Therapy Plan of Care This is a Multidisciplinary Plan of Care that may contain components documented by all disciplines (PT, OT, and ST.) PT Problem 1 PT Problem #1 Knowledge Deficit PT Goal 1 Goal / Goal Update patient to report independence with HEP Target Visit 5 Progress Met PT Problem 2 PT Problem #2 Pain PT Goal 1 Goal / Goal Update 1. Patient to report ability to sleep with no increase in pain -met 2. Patient to report highest pain at 2/10 Target Visit 10 Progress Partially Met PT Problem 3 PT Problem #3 Impaired Range of Motion PT Goal 1 Goal / Goal Update Patient to demonstrate B knee active ROM to 0-120 to return to stair navigation without difficulty Target Visit 20 Progress Partially Met PT Problem 4 PT Problem #4 Impaired Strength PT Goal 1 Goal / Goal Update 1. Patient to demonstrate 4+/5 B LE strength to improve ability to get up out of a chair Target Visit 20 Progress Met PT Problem 5 PT Problem #5 Impaired Functional Mobility PT Goal 1 Goal / Goal Update 1. Patient to improve LEFS by 20% -met 2. Patient to report ability to get into and out of the car with no increase in B knee pain -not met 3. Patient to complete 6 min walk test -not met 4. Patient to report ability to walk in the yard without use of AD -met Target Visit 20 Progress Partially Met
--- NOTE | 2024-12-02 15:37 | PTOPDC ---
Assessment and note entered by Teresa Cristobal, PT Evaluation Information Assessment Status Discharge Diagnosis B knee pain ICD-10 Condition Codes (PT) Pain in right knee M25.561,Pain in left knee M25. 562 Other ICD-10 Condition Codes ( M17.0 PT) Onset 09/08/24 Subjective Information Natalie Mann reports her knees are doing better since initiating PT. She has not had any falls and she is doing more around the house than she did before. She does still have difficulty groceries in her left hand due to her left knee pain being worse than the right. She feels she is able to continue exercises independently at this time. Reported Pain Level Pain Score 0,3: Self Report Assessment PT Clinical Summary Ms. Mann has been seen for 18 visits of skilled PT for bilateral knee OA. She is reporting improved ability to do housework and less knee pain. She does still have left > right knee pain and still has difficulty carrying groceries on the left side. She demonstrates improved balance and improved LE strength as well as improved knee ROM. She does still have limitations in left knee flexion and right knee extension AROM as well as altered gait. She is independent in a HEP to continue strength, balance, and ROM training. She will be discharged to an independent in HEP. Plan of Care PT Services Indicated No
== END 2024-12-02 20:00 | disposition home or self-care (01) ==
LOC: CHSPT 14:27
PROVIDERS: Visit Provider Nurse Practitioner Family
DX: M17.0 Bilateral primary osteoarthritis of knee (principal)
CPT/HCPCS: 97110; 97112; 97116; 97140; 97150; 97161; 97530; 97750

== ENCOUNTER 2024-09-23 13:04 | Outpatient (CLI) | payer MEDICARE, OTHER, SELFPAY ==
--- NOTE | ~2024-09-23 | CT_ITS ---
CT Scan of the Chest without Contrast: Clinical Indication: Lung cancer screening, nicotine dependence Technique: Contiguous sections were acquired throughout the chest without intravenous contrast. Dose reduction technique was used on this scan by utilizing automated exposure control and iterative recon struction technique. The dose-length product (DLP) was 301.30 mGy-cm. COMPARISON: 09/22/2023 Findings: There is no evidence of any significant mediastinal, hilar or axillary lymphadenopathy. Coronary carlyle ry calcifications present. There is lipomatous hypertrophy of the interatrial septum. There is no evidence of pleural or pericardial effusion. There is a 3.1 x 1.0 cm irregular airspace consolidation/nodule in the anterior left upper lobe (axia l image 25). Moderate to advanced emphysema present. Calcified right basilar granuloma present. Stabl e 5 mm right lower lobe pulmonary nodule (axial image 72). Images through the upper abdomen reveal no abnormalities. Impression: Lung RADS 4A: Suspicious. 3 month follow-up CT recommended. PET/CT or tissue sampling could also be c onsidered, though morphology the finding is more suggestive of scarring or postinflammatory change. Moderate to advanced emphysema. Reviewed, dictated and finalized at location . Impression: Lung RADS 4A: Suspicious. 3 month follow-up CT recommended. PET/CT or tissue sa mpling could also be considered, though morphology the finding is more suggesti ve of scarring or postinflammatory change. Moderate to advanced emphysema.
--- OUTSIDE RECORDS SUMMARY | 2024-09-23 13:33 | XMS_ITS | Clinical Summary ---
Author Organization [facility] Address [address] [place] [id number] Care Team Providers Care Stippler Name Role Phone Walker Martell MD Primary Care Provider [phone] Allergies No known active allergies Medications albuterol HFA (PROAIR HFA) 90 mcg/actuation inhaler inhale 2 puff by inhalation route every 4 - 6 hours as needed 0 Inhaler 0 5 Active lisinopril (PRINIVIL,ZESTR IL) 20 mg tablet take 1 tablet by oral route every day 0 0 5 Active amLODIPine (NORVASC) 10 mg tablet take 1 tablet by oral route every day 0 0 5 Active fluticasone-beatriz meterol (ADVAIR DISKUS) 500-50 mcg/dose diskus inhaler Active levothyroxine (SYNTHROID, LEVOTHROID) 100 mcg tablet TK 1 T PO QD 0 8 Active atorvastatin (LIPITOR) 10 mg tablet TK 1 T PO QD 1 9 Active sertraline (ZOLOFT) 50 mg tablet TK 1 T PO D 0 Active cholecalciferol (VITAMIN D-3) 5,000 unit capsule Take 5,000 Units by mouth daily Active Active Problems Problem Noted Date Diagnosed Date Thyroid nodule 04/12/2015 Current non-smoker 01/23/2015 Overview (09/19/2016): Current non-smoker Knee pain 01/23/2015 Overview (09/19/2016): Knee pain Chronic obstructive pulmonary disease 01/23/2015 Overview (09/19/2016): COPD - Chronic obstructive pulmonary disease Hemangiopericytoma 07/01/2014 Surgical History Surgery Date Site/Laterality Comments IR FINE NEEDLE ASPIRATION W IMAGE GUIDANCE 03/07/2016 N/A Medical History Medical History Date Comments Hx Other Medical Sinus surgery A pril 2013.; Comments: [facility] 01/24/2015 - Hx Other Medical 1980. ; Comments: J 01/24/2015 - Hx Other Medical Rotator cuff meier rg.; Comments: [facility] 01/24/2015 - Hx Other Medical Left knee surge ry.; Comments: [facility] 01/24/2015 - Hx Other Medical Right knee arth roscopic partial medial meniscectom; Comments: [facility] 10/09/2015 - Social History Tobacco Use Types Packs/Day Years Used Date Smoking Tobacco: Never Assessed Personal Safety Answer Date Recorded Have you ever been in or are you currently in a harmful physical or emotional relationship or is someone making you feel afraid or unsafe? Denies 07/01/2023 Comments Unknown Sex and Gender Information Value Date Recorded Sex Assigned at Not on file Legal Sex Female 1:13 AM CATCHER PLUG Gender Identity Not on file Sexual Orientation Not on file Obstetrics History Last Filed Vital Signs Vital Sign Reading Time Taken Comments Blood Pressure 117/76 07/01/2023 1:00 PM CATCHER PLUG Pulse 62 07/01/2023 1:00 PM CATCHER PLUG Temperature 36.8 C (98.2 F) 07/01/2023 9:28 AM CATCHER PLUG Respiratory Rate 18 07/01/2023 9:28 AM CATCHER PLUG Oxygen Saturation 95% 07/01/2023 1:00 PM CATCHER PLUG Inhaled Oxygen Concentration - - Weight 102.1 kg (225 lb) 07/01/2023 9:28 AM CATCHER PLUG Height 175.3 cm (5' 9 ) 04/05/2020 10:26 AM CDT Body Mass Index 33.23 04/05/2020 10:26 AM CDT Plan of Treatment Health Maintenance Due Date Last Done Comments Breast Cancer Screening-Mammogram 1950 Colon Cancer Screening-Colonoscopy 1950 Depression Screening 1950 Fall Risk Assessment 1950 Hepatitis C Screening 1950 Osteoporosis Screening-Bone Density Scan 1951 DTaP/Tdap/Td Vaccine (1 - Tdap) 1962 Hepatitis B Screening 1969 Zoster Vaccine (1 of 2) 2001 Well Visit 65+ 2016 Pneumococcal vaccine 65+ (3 of 3 - PCV20 or PCV21) 03/17/2022 03/17/2017, 05/16/2014, 06/16/2013 Influenza Vaccine (Season Ended) 2025 03/17/2017, 05/02/2016, 03/22/2016, Additional history exists Insurance COMMERCIAL GENERIC MEDICARE MEDICARE COMMERCIAL GENERIC MEDICARE COMMERCIAL GENERIC H & W MCR SUPPLEMENT Care Teams Stippler Relationship Specialty Start Date End Date Walker Martell MD PCP - General Family Practice 07/01/23
--- OUTSIDE RECORDS SUMMARY | 2024-09-23 13:33 | XMS_ITS | Encounter Summary ---
Author Organization [facility] Address [address] [place] [address] Care Team Providers Care Composition Roofer Name Role Phone Unavailable Primary Care Provider Unavailabl e Encounter Details Date Type Department Care Team (Latest Contact Info) Description 04/21/2018 Abstract [facility] , Generic Conversion, Social History Tobacco Use Types Packs/Day Years Used Date Smoking Tobacco: Never Assessed Comments Unknown Sex and Gender Information Value Date Recorded Sex Assigned at Not on file Legal Sex Female 11:46 PM CDT Gender Identity Not on file Sexual Orientation Not on file documented as of this encounter Plan of Treatment Not on file documented as of this encounter Visit Diagnoses Not on filedocumented in this encounter
--- OUTSIDE RECORDS SUMMARY | 2024-09-23 13:33 | XMS_ITS | Referral Summary ---
Author Organization [facility] Address [facility] [place] [address] Care Team Providers Care Absorption Plant Operator Name Role Phone Walker Martell MD Primary Care Provider [phone] Allergies No known active allergies Medications albuterol [...] - Chronic obstructive pulmonary disease Hemangiopericytoma 07/01/2014 Social History Tobacco Use Types Packs/Day Years [...] on file Legal Sex Female 1:13 AM ADVANCED CLINICAL SPECIALIST Gender Identity Not on file Sexual Orientation Not on file Last Filed Vital Signs Vital Sign Reading Time Taken Comments Blood Pressure 117/76 07/01/2023 1:00 PM ADVANCED CLINICAL SPECIALIST Pulse 62 07/01/2023 1:00 PM ADVANCED CLINICAL SPECIALIST Temperature 36.8 C (98.2 F) 07/01/2023 9:28 AM ADVANCED CLINICAL SPECIALIST Respiratory Rate 18 07/01/2023 9:28 AM ADVANCED CLINICAL SPECIALIST Oxygen Saturation 95% 07/01/2023 1:00 PM ADVANCED CLINICAL SPECIALIST Inhaled Oxygen Concentration - - Weight 102.1 kg (225 lb) 07/01/2023 9:28 AM ADVANCED CLINICAL SPECIALIST Height 175.3 cm (5' 9 ) 04/05/2020 10:26 AM CDT Body Mass Index 33.23 04/05/2020 10:26 AM CDT Plan of Treatment Not on file Insurance COMMERCIAL GENERIC MEDICARE MEDICARE COMMERCIAL GENERIC MEDICARE COMMERCIAL GENERIC H & W MCR SUPPLEMENT Care Teams Absorption Plant Operator Relationship Specialty Start Date End Date Walker Martell MD PCP - General Family Practice 07/01/23
--- OUTSIDE RECORDS SUMMARY | 2024-09-23 13:33 | XMS_ITS | Continuity of Care Document ---
Author Organization [facility] Address [address] [place] [address] utive [facility] [address] [place] [address] Phone Care Team Providers Care Rehabilitation Counselor Name Role Phone Silva OD, Akbar Unavailable Unavailable Procedures Procedure Date Eye Exam & Treatment Refraction Advance Directives Directive Yes / No Effective Date File Name No Information Encounters Encounter Description Practice Location Reason(s) For Visit Diagnoses Date Provider Providers Copied on Encounter [facility], [address] [place] [address] [address] [place], [place], [id number], [place] tel:[phone] [facility] No Information 3-200 7 Silva OD Akbar. [address] , [address], [place], [address], [place]. tel:[phone] Family History Family Member Type Diagnosis Age At Onset No Information Payers Payer name Insurance type Covered green party ID Authoriza tion(s) No Information Social History Type Description Quantity Date Captured Comments Sex Female Smoking Status No Information Chief Complaint And Reason For Visit No Information Reason For Referral Reason For Referral No Information History Of Present Illness Encounter Date Complaint History Of Prese nt Illness No Information Functional Status Date Functional Assessmen t No Information Instructions Date Instruction Additional Infor mation No Information Assessments Type Assessment Date No Information Patient Care Teams Name Effective Dates (start - stop) Status Members No Information
--- OUTSIDE RECORDS SUMMARY | 2024-09-23 13:33 | XMS_ITS | Clinical Summary ---
Author Organization [facility] Address [address] [place] [id number] Care Team Providers Care Cte Teacher Name Role Phone Unavailable Primary Care Provider Unavailabl e Social History Tobacco Use Types Packs/Day Years Used Date Smoking Tobacco: Never Assessed Comments Unknown Sex and Gender Information Value Date Recorded Sex Assigned at Not on file Legal Sex Female 11:46 PM CDT Gender Identity Not on file Sexual Orientation Not on file Last Filed Vital Signs Vital Sign Reading Time Taken Comments Blood Pressure 158/90 07/23/2016 11:46 AM MIXER BLENDER Pulse 77 07/23/2016 11:46 AM MIXER BLENDER Temperature - - Respiratory Rate - - Oxygen Saturation - - Inhaled Oxygen Concentration - - Weight 131.1 kg (289 lb) 07/23/2016 11:46 AM MIXER BLENDER Height 175.3 cm (5' 9 ) 07/23/2016 11:46 AM MIXER BLENDER Body Mass Index 42.68 07/23/2016 11:46 AM MIXER BLENDER Plan of Treatment Health Maintenance Due Date Last Done Comments Colorectal Cancer Screening Colonoscopy (10 Years) 1951 Hepatitis C 1969 DTaP, Tdap and Td Vaccines ( 1 - Tdap) 1970 Mammogram Screening 1991 Zoster Vaccines (1 of 2) 2001 Dexa Scan (General) 2016 Pneumococcal Vaccine: 65+ Ye ars (2 of 2 - PCV) 2016 06/16/2013 COVID-19 Vaccine ( - 2023-2 5 season) 2024 RSV Immunization or 60+ Years (1 - 1-dose 75+ series) 2026 Meningococcal B Vaccine Aged Out No l onger eligible based on patient's age to complete this topic Meningococcal Vaccine Aged Out No joe josue eligible based on patient's age to complete this topic RSV Immunizations Under 20 Months Aged Out No longer eligible based on patient's age to complete this topic
== END 2024-09-23 13:05 | disposition home or self-care (01) ==
PROVIDERS: PCP Nurse Practitioner Family; Visit Provider Nurse Practitioner Family
DX: Z12.2 Encounter for screening for malignant neoplasm of respiratory organs (principal); Z87.891 Personal history of nicotine dependence; R91.8 Other nonspecific abnormal finding of lung field; J43.9 Emphysema, unspecified
CPT/HCPCS: 71271

== ENCOUNTER 2024-12-20 12:25 | Outpatient (CLI) | payer MEDICARE, OTHER, SELFPAY ==
--- NOTE | ~2024-12-20 | CT_ITS ---
CT Scan of the Chest without Contrast: Clinical Indication: Pulmonary nodule Technique: Contiguous sections were acquired throughout the chest without intravenous contrast. Dose reduction technique was used on this scan by utilizing automated exposure control and iterative recon struction technique. The dose-length product (DLP) was 307.81 mGy-cm. COMPARISON: 09/23/2024 Findings: There is no evidence of any significant mediastinal, hilar or axillary lymphadenopathy. The mediastin al soft tissues appear normal. There is no evidence of pleural or pericardial effusion. Moderate emphysema present. Calcified right basilar granuloma present. Previously noted left upper lo be airspace opacities are resolved. Images through the upper abdomen reveal [id number] hiatal hernia. Impression: Previously noted left upper lobe airspace opacity is resolved. Moderate emphysema. Reviewed, dictated and finalized at [facility]. Impression: Previously noted left upper lobe airspace opacity is resolved. Moderate emphysema.
--- OUTSIDE RECORDS SUMMARY | 2024-12-20 12:28 | XMS_ITS | Clinical Summary ---
Author Organization [facility] Address [address] [place] [address] Care Team Providers Care Design Consultant Name Role Phone Unavailable Primary Care Provider [...] Comments Blood Pressure 158/90 07/23/2016 11:46 AM PROCESS LEAD Pulse 77 07/23/2016 11:46 AM PROCESS LEAD Temperature - - Respiratory Rate - - Oxygen Saturation - - Inhaled Oxygen Concentration - - Weight 131.1 kg (289 lb) 07/23/2016 11:46 AM PROCESS LEAD Height 175.3 cm (5' 9) 07/23/2016 11:46 AM PROCESS LEAD Body Mass Index 42.68 07/23/2016 11:46 AM PROCESS LEAD Plan of Treatment Health Maintenance Due Date Last Done Comments Colorectal Cancer Screening Colonoscopy (10 Years) 1950 Hepatitis C 1969 DTaP, Tdap and Td Vaccines ( 1 - Tdap) 1970 Mammogram Screening 1991 Zoster Vaccines (1 of 2) 2001 Pneumococcal Vaccine: 50+ Ye ars (2 of 2 - PCV) 06/16/2014 06/16/2013 Dexa Scan (General) 2016 COVID-19 Vaccine ( - 2023-2 5 season) [...]
--- OUTSIDE RECORDS SUMMARY | 2024-12-20 12:28 | XMS_ITS | Encounter Summary ---
Author Organization [facility] Address [address] [place] [address] Care Team Providers Care Telegraphic Typewriter Mechanic Name Role Phone Unavailable Primary Care Provider Unavailabl e Encounter Details Date Type Department Care Team (Latest Contact Info) Description 04/21/2018 Abstract [facility] Medical Group , Generic Conversion, Social History [...]
--- OUTSIDE RECORDS SUMMARY | 2024-12-20 12:28 | XMS_ITS | Referral Summary ---
Author Organization [facility] Address [facility] [place] [address] Care Team Providers Care Toll Relief Operator Name Role Phone Walker Martell MD Primary Care Provider [phone] Allergies No known active allergies Medications albuterol [...] on file Legal Sex Female 1:13 AM BUSINESS SERVICES SPECIALIST SALES Gender Identity Not on file Sexual Orientation Not on file Last Filed Vital Signs Vital Sign Reading Time Taken Comments Blood Pressure 117/76 07/01/2023 1:00 PM BUSINESS SERVICES SPECIALIST SALES Pulse 62 07/01/2023 1:00 PM BUSINESS SERVICES SPECIALIST SALES Temperature 36.8 C (98.2 F) 07/01/2023 9:28 AM BUSINESS SERVICES SPECIALIST SALES Respiratory Rate 18 07/01/2023 9:28 AM BUSINESS SERVICES SPECIALIST SALES Oxygen Saturation 95% 07/01/2023 1:00 PM BUSINESS SERVICES SPECIALIST SALES Inhaled Oxygen Concentration - - Weight 102.1 kg (225 lb) 07/01/2023 9:28 AM BUSINESS SERVICES SPECIALIST SALES Height 175.3 cm (5' 9) 04/05/2020 10:26 AM CDT Body Mass Index 33.23 04/05/2020 10:26 AM CDT Plan of Treatment Not on file Insurance COMMERCIAL GENERIC MEDICARE MEDICARE COMMERCIAL GENERIC MEDICARE COMMERCIAL GENERIC H & W MCR SUPPLEMENT Care Teams Toll Relief Operator Relationship Specialty Start Date End Date Walker Martell MD PCP - General Family Practice 07/01/23
--- OUTSIDE RECORDS SUMMARY | 2024-12-20 12:28 | XMS_ITS | Clinical Summary ---
Author Organization [facility] Address [address] [place] [id number] Care Team Providers Care Bean Snipper Name Role Phone Walker Martell MD Primary Care Provider [phone] [phone] Allergies No known active allergies Medications albuterol [...] Other Medical Left knee surge ry.; Comments: [facility] 01/24/2015 - Hx Other Medical Right knee [...] on file Legal Sex Female 1:13 AM PAPER MILL SUPERVISOR Gender Identity Not on file Sexual Orientation Not on file Obstetrics History Last Filed Vital Signs Vital Sign Reading Time Taken Comments Blood Pressure 117/76 07/01/2023 1:00 PM PAPER MILL SUPERVISOR Pulse 62 07/01/2023 1:00 PM PAPER MILL SUPERVISOR Temperature 36.8 C (98.2 F) 07/01/2023 9:28 AM PAPER MILL SUPERVISOR Respiratory Rate 18 07/01/2023 9:28 AM PAPER MILL SUPERVISOR Oxygen Saturation 95% 07/01/2023 1:00 PM PAPER MILL SUPERVISOR Inhaled Oxygen Concentration - - Weight 102.1 kg (225 lb) 07/01/2023 9:28 AM PAPER MILL SUPERVISOR Height 175.3 cm (5' 9) 04/05/2020 10:26 [...] H & W MCR SUPPLEMENT Care Teams Bean Snipper Relationship Specialty Start Date End Date Walker Martell MD PCP - General Family Practice 07/01/23
--- OUTSIDE RECORDS SUMMARY | 2024-12-20 12:28 | XMS_ITS | Continuity of Care Document ---
Author Organization [facility] Address [address] [place] [address] utive [facility] [address] [place] [address] Phone Care Team Providers Care Information Clerk Cashier Name Role Phone Silva OD, Akbar Unavailable Unavailable Procedures Procedure Date Eye Exam & Treatment Refraction Advance Directives Directive Yes / No Effective Date File Name No Information Encounters Encounter Description Practice Location Reason(s) For Visit Diagnoses Date Provider Providers Copied on Encounter [facility], [address] [place] [address] [address], [place], [place], [id number], [place] tel:[phone] [facility] No Information [address] Silva OD Akbar. [address] , [address], [place], [address], [place]. tel:[phone] Family History Family Member Type Diagnosis Age At Onset No Information Payers Payer name Insurance type Covered alliance party ID Authoriza tion(s) No Information Social [...]
== END 2024-12-20 12:26 | disposition home or self-care (01) ==
LOC: CHSIMG 12:26
PROVIDERS: PCP Nurse Practitioner Family; Visit Provider Nurse Practitioner Family
DX: R91.1 Solitary pulmonary nodule (principal); J43.9 Emphysema, unspecified
CPT/HCPCS: 71250

== ENCOUNTER 2025-06-04 16:48 | Outpatient (CLI) | payer MEDICARE, OTHER, SELFPAY ==
--- NOTE | ~2025-06-04 | XR_ITS ---
EXAMINATION: XR chest 2V 06/04/2025 17:04 INDICATION: Dyspnea and wheezing PROCEDURE: 2 view chest COMPARISON: 09/15/2015 FINDINGS: The lungs are clear. The cardiomediastinal silhouette is within normal limits. There are no pleural effusions. There is no pneumothorax suspected. Small hiatal hernia. IMPRESSION: 1: NO ACUTE CARDIOPULMONARY DISEASE. Reviewed, dictated and finalized at location O. FIC PERSONNEL SUPERVISOR
--- OUTSIDE RECORDS SUMMARY | 2025-06-04 16:53 | XMS_ITS | Clinical Summary ---
Author Organization [facility] Address [address] [place] [id number] Care Team Providers Care Bakery Clerk Name Role Phone Walker Martell MD Primary Care Provider [phone] Allergies No known active allergies Medications albuterol [...] route every day 0 0 5 Active fluticasone-baetriz meterol (ADVAIR DISKUS) 500-50 mcg/dose diskus inhaler [...] Other Medical Rotator cuff meier rg.; Comments: [facility] 01/24/2015 - Hx Other Medical Left knee surge ry.; Comments: [facility] 01/24/2015 - Hx Other Medical Right knee arth roscopic partial medial meniscectom; Comments: [facility] 10/09/2015 - Social History Tobacco Use Types [...] on file Legal Sex Female 1:13 AM INTERN Gender Identity Not on file Sexual Orientation Not on file Last Filed Vital Signs Vital Sign Reading Time Taken Comments Blood Pressure 117/76 07/01/2023 1:00 PM INTERN Pulse 62 07/01/2023 1:00 PM INTERN Temperature 36.8 C (98.2 F) 07/01/2023 9:28 AM INTERN Respiratory Rate 18 07/01/2023 9:28 AM INTERN Oxygen Saturation 95% 07/01/2023 1:00 PM INTERN Inhaled Oxygen Concentration - - Weight 102.1 kg (225 lb) 07/01/2023 9:28 AM INTERN Height 175.3 cm (5' 9) 04/05/2020 10:26 [...] PCV21) 03/17/2022 03/17/2017, 05/16/2014, 06/16/2013 Influenza Vaccine (#1) 2025 7, 05/02/2016, 03/22/2016, Additional history exists Insurance COMMERCIAL GENERIC MEDICARE MEDICARE COMMERCIAL GENERIC MEDICARE COMMERCIAL GENERIC H & W MCR SUPPLEMENT Care Teams Bakery Clerk Relationship Specialty Start Date End Date Walker Martell MD PCP - General Family Practice 07/01/23
--- OUTSIDE RECORDS SUMMARY | 2025-06-04 16:53 | XMS_ITS | Clinical Summary ---
Author Organization [facility] Address [address] [place] [address] Care Team Providers Care Senior Sales Operations Analyst Name Role Phone Unavailable Primary Care Provider [...] Comments Blood Pressure 158/90 07/23/2016 11:46 AM BSA/AML COMPLIANCE OFFICER Pulse 77 07/23/2016 11:46 AM BSA/AML COMPLIANCE OFFICER Temperature - - Respiratory Rate - - Oxygen Saturation - - Inhaled Oxygen Concentration - - Weight 131.1 kg (289 lb) 07/23/2016 11:46 AM BSA/AML COMPLIANCE OFFICER Height 175.3 cm (5' 9) 07/23/2016 11:46 AM BSA/AML COMPLIANCE OFFICER Body Mass Index 42.68 07/23/2016 11:46 AM BSA/AML COMPLIANCE OFFICER Plan of Treatment Health Maintenance Due Date Last Done Comments Colorectal Cancer Screening Colonoscopy (10 Years) 1950 Hepatitis C 1969 DTaP, Tdap and Td Vaccines ( 1 - Tdap) 1970 Mammogram Screening 1991 Zoster Vaccines (1 of 2) 2001 Pneumococcal Vaccine: 50+ Years (2 of 2 - PCV) 06/16/2014 06/16/2013 Dexa Scan (General) 2016 COVID-19 Vaccine ( - 2024-2 6 season) 2025 Influenza Adult (#1) 2025 03/22/2016, 1950 RSV Immunization or 60+ Years (1 - 1-dose 75+ series) 2026 Hepatitis A Vaccines Aged Out No long er eligible based on patient's age to complete this topic Meningococcal B Vaccine Aged Out No l onger eligible based on patient's age to complete this topic Meningococcal Vaccine Aged Out No joe josue eligible based on patient's age to complete this topic RSV Immunizations Under 20 Months Aged Out No longer eligible b ased on patient's age to complete this topic
--- OUTSIDE RECORDS SUMMARY | 2025-06-04 16:53 | XMS_ITS | Encounter Summary ---
Author Organization [facility] Address [address] [place] [address] Care Team Providers Care Host/Hostess Ground Name Role Phone Unavailable Primary Care Provider Unavailabl e Encounter Details Date Type Department Care Team (Latest Contact Info) Description 04/21/2018 Abstract [facility] Medical Group , Generic Conversion, Social History [...]
== END 2025-06-04 16:49 | disposition home or self-care (01) ==
LOC: CHSIMG 16:52
PROVIDERS: PCP Family Medicine; Visit Provider Nurse Practitioner Family
DX: R06.00 Dyspnea, unspecified (principal); R07.81 Pleurodynia
CPT/HCPCS: 71046